=== PATIENT | female | born 1980 ===

== ENCOUNTER 2024-05-08 07:48 | Day surgery (SDC) | payer BC ==
[~2024-05-08 07:48] MED LIST: Sodium Chloride 0.9% 10 ML Syringe FLUSH PRN; Sodium Chloride 0.9% 10 ML Syringe FLUSH SCH
[2024-05-08] MEDS: Lactated Ringers 1,000 ML IV SCH (08:15)
[2024-05-08] MEDS ORDERED: Midazolam 1 MG/ML 2 ML SDV ONE (08:59)
[2024-05-08] MEDS ORDERED: Propofol 200 MG/20 ML SDV ONE (09:00)
[2024-05-08] MEDS ORDERED: Lidocaine 1% 4 ML ONE (09:01)
[2024-05-08] MEDS: Albuterol 0.083% 2.5 MG/3 ML Neb Soln NEB ONE (09:39)
[2024-05-08 11:34] VITALS: BP 108/70; PULSE 68
== END 2024-05-08 11:30 | disposition home or self-care (01) ==
LOC: JD.SDS 07:48
PROVIDERS: ATTEND Surgery
DX: Z12.11 Encounter for screening for malignant neoplasm of colon (principal); K29.80 Duodenitis without bleeding; K31.89 Other diseases of stomach and duodenum; K44.9 Diaphragmatic hernia without obstruction or gangrene; F17.210 Nicotine dependence, cigarettes, uncomplicated
CPT/HCPCS: 43239; 45380; J2250; J2704; J7120; 00813; J3490; J7620-GY